=== PATIENT | female | born 1995 | race Caucasian/White ===

== ENCOUNTER 2017-08-07 17:01 | Emergency (ER) | payer SELFPAY ==
[~2017-08-07] VITALS: Ht 165.1 cm; Wt 97.2 kg
[~2017-08-07 17:01] MED LIST: BACTRIM,SEPT1 TABLET PO; ELIMITE 5% CREA60 GM TP; NAPROSYN500 MG PO; VALIUM5 MG PO; ZOFRAN ODT4 MG PO; ZOFRAN4 MG PO
[2017-08-07] MEDS ORDERED: VENTOLIN HFA18 GM IH (19:32)
[2017-08-07] MEDS ORDERED: MEDROL DOSEPAK4 MG PO (19:32)
[2017-08-07 19:47] VITALS: BP 127/82
== END 2017-08-07 19:47 | disposition home or self-care (01) ==
LOC: EME 17:01
DX: J06.9 Acute upper respiratory infection, unspecified (principal); R11.0 Nausea; F17.200 Nicotine dependence, unspecified, uncomplicated
CPT/HCPCS: 71046; 99281; 99284